=== PATIENT | male | born 1965 | race Caucasian/White ===

== ENCOUNTER 2019-08-26 20:17 | Emergency (ER) | payer MEDICAID, OTHER ==
[~2019-08-26] VITALS: Ht 182.9 cm; Wt 106.5 kg
[2019-08-26] MEDS ORDERED: SODIUM CHLORIDE 0.9% 1,000ML IVBOLUS ONE (21:30)
[2019-08-26] MEDS ORDERED: ONDANSETRON 2MG/ML, 2ML IVPush ONE (21:30)
[2019-08-26] MEDS: PLEASE ENTER ALLERGIES MC SCH ×2 (21:30→23:55)
[2019-08-26] MEDS ORDERED: SODIUM CHLORIDE FLUSH 10ML SYR IVF ONE (21:30)
--- NOTE | 2019-08-26 21:35 | NUR ---
STOOL SAMPLE COLLECTED AND SENT TO LAB.
--- NOTE | 2019-08-26 21:38 | NUR ---
YASMEEN ([facility]) [phone]
--- NOTE | 2019-08-26 21:40 | NUR ---
THIS IS A 54 YO M W/ C/O DIARRHEA X3 WEEKS. PT REPORTS NOT BEING ABLE TO HOLD IT IN. PT DENIES RECENT ABX/N/V/ABD PAIN. RECEIVED TELEPHONE CALL FROM PTS NIECE YASMEEN WHO REPORTS THEY HAVE NOT BEEN ABLE TO GET A HOLD OF HIM AND HER SISTER SAW HIM IN THE ED LOBBY AND DID NOT RECOGNIZE HER, THEY ARE CONCERNED FOR HIS MENTAL STATUS. PT IS a&oX4 FOR THIS RN. RESP EVEN AND UNLABORED. NADN. WILL CONTINUE TO MONITOR.
[2019-08-26 21:48] LABS: BASOPHILS # (AUTO) 0.03 x10^3/uL (0-0.1); BASOPHILS % (AUTO) 0 % (0-1); EOSINOPHILS # (AUTO) 0.07 x10^3/uL (0-0.4); EOSINOPHILS % (AUTO) 1 % (1-7); LYMPHOCYTES # (AUTO) 1.34 x10^3/uL (1-3.4); LYMPHOCYTES % (AUTO) 18 % (22-44); MD NO; MEAN CORPUSCULAR HEMOGLOBIN 32.3 pg (27.5-34.5); MEAN CORPUSCULAR HGB CONC 33.5 g/dL (33.2-36.2); MEAN CORPUSCULAR VOLUME 96.4 fL (81-97); MEAN PLATELET VOLUME 7.6 fL (7.4-10.4); MONOCYTES # (AUTO) 0.65 x10^3/uL (0.2-0.8); MONOCYTES % (AUTO) 9 % (2-9); NEUTROPHILS # (AUTO) 5.28 x10^3/uL (1.8-6.8); NEUTROPHILS % (AUTO) 72 % (42-75); PLATELET COUNT 224 x10^3/uL (130-400); RED BLOOD COUNT 5.24 x10^6/uL (4.38-5.82); RED CELL DISTRIBUTION WIDTH 12.8 % (9.4-14.8)
[2019-08-26 21:54] LABS: ALANINE AMINOTRANSFERASE 26 U/L (12-78); ALBUMIN 3.7 g/dL (3.4-5.0); ANION GAP 5 mmol/L (5-15); CALCIUM 8.9 mg/dL (8.5-10.1); CHLORIDE 113 mmol/L (98-107); CREATININE 1.26 mg/dL (0.7-1.3)
[2019-08-26 21:57] LABS: ALKALINE PHOSPHATASE 119 U/L (45-117); BILIRUBIN,TOTAL 0.6 mg/dL (0.2-1.0); TOTAL PROTEIN 7.5 g/dL (6.4-8.2)
--- NOTE | 2019-08-26 22:06 | NUR ---
PIV STARTED, IVF STARTED.
[2019-08-26 22:39] LABS: CLOSTRIDIUM DIFFICILE ANTIGEN NEGATIVE; CLOSTRIDIUM DIFFICILE TOXIN NEGATIVE (Negative)
[2019-08-26 23:52] VITALS: BP 132/84
[2019-08-27 09:00] LABS: CRYPTOSPORIDIUM ANTIGEN Negative (Negative)
== END 2019-08-26 23:53 | disposition home or self-care (01) ==
LOC: ED 23:30
DX: K52.9 Noninfective gastroenteritis and colitis, unspecified (principal); E86.0 Dehydration; R00.0 Tachycardia, unspecified; R11.2 Nausea with vomiting, unspecified; R10.9 Unspecified abdominal pain
CPT/HCPCS: 36415; 80053; 83690; 85025; 87046; 87324; 87328; 87329; 87427; 89055; 93005; 96360; 96361; 99284; J7030

== ENCOUNTER 2021-02-02 01:07 | Emergency (ER) | payer MEDICAID ==
[~2021-02-02] VITALS: Ht 185.4 cm; Wt 128.0 kg
[2021-02-02 01:11] VITALS: BP 144/89
== END 2021-02-02 01:59 | disposition home or self-care (01) ==
LOC: ED 01:15
DX: S01.412A Laceration without foreign body of left cheek and temporomandibular area, initial encounter (principal); Y00.XXXA Assault by blunt object, initial encounter; Y93.89 Activity, other specified; Y92.410 Unspecified street and highway as the place of occurrence of the external cause; Y99.8 Other external cause status